=== PATIENT | male | born 1935 | race African-American/Black ===

== ENCOUNTER 2021-12-06 20:53 | Inpatient (IN) | payer OTHER, SELFPAY ==
[~2021-12-06] VITALS: Ht 180.3 cm; Wt 81.6 kg
[2021-12-06 21:23] VITALS: BP_SYST 149
--- NOTE | 2021-12-06 21:27 | NUR ---
Patient to ER bed TENT 3 to gown for evaluation. Side rails up.
--- NOTE | 2021-12-06 21:30 | NUR ---
Pt brought by self,A&Ox4, pt presents to ER with cough/congestion, states he is positive for covid, VSS, respirations even and unlabored, will cont to monitor.
--- NOTE | 2021-12-06 21:49 | NUR ---
patient moved from tent to room 6
--- NOTE | 2021-12-06 22:15 | NUR ---
VALORIE [phone] SON UPDATED ON PATIENT STATUS.
--- NOTE | 2021-12-06 22:27 | NUR ---
Dr Reese evaluating patient at bedside
[2021-12-06] MEDS ORDERED: NACL 0.9% 1,000 ML IV ONE (22:45)
--- NOTE | 2021-12-07 00:21 | NUR ---
nosal swab done for covid test and sent to lab.
[2021-12-07 00:26] LABS: BASOPHILS % (AUTO) 0.5 % (0.0-2.0); HEMATOCRIT 37.6 % (36-54); LYMPHOCYTES # (AUTO) 3.1 K/uL (1.0-5.5); LYMPHOCYTES % (AUTO) 61.1 % (20.5-51.5); MEAN CORPUSCULAR HEMOGLOBIN 29 pg (27-31); MEAN CORPUSCULAR HGB CONC 32 % (32-36); MEAN CORPUSCULAR VOLUME 89 fL (79.0-98.0); MONOCYTES # (AUTO) 0.5 K/uL (0.0-1.0); MONOCYTES % (AUTO) 10.8 % (1.7-9.3); NEUTROPHILS # (AUTO) 1.4 K/uL (1.8-7.7); NEUTROPHILS % (AUTO) 27.6 % (40.0-70.0); PLATELET COUNT (AUTO) 107 K/uL (130-430); RED BLOOD CELL COUNT(AUTO) 4.22 MIL/uL (4.2-6.2); RED CELL DISTRIBUTION WIDTH 14.1 % (9.0-15.0); WHITE BLOOD COUNT (AUTO) 5.1 K/uL (4.8-10.8)
[2021-12-07 00:39] LABS: ANION GAP 8 (5-15); CALCIUM 8.1 mg/dL (8.4-11.0); CHLORIDE 103 mmol/L (98-107); CREATININE 1.35 mg/dL (0.55-1.30); GLUCOSE 103 mg/dL (70-99); POTASSIUM 3.9 mmol/L (3.5-5.1); SODIUM SERUM 141 mmol/L (136-145); UREA NITROGEN, BLOOD 29 mg/dL (8-21)
[2021-12-07 00:41] LABS: INR 1.1 (0.80-1.20); PROTHROMBIN TIME 11.2 SECS (9.5-12.5)
[2021-12-07 00:58] LABS: ALANINE AMINOTRANSFERASE 41 U/L (12-78); ALBUMIN 3.3 g/dL (3.4-4.8); ASPARTATE AMINOTRANSFERASE 50 U/L (10-37); LIPASE 307 U/L (73-393); TOTAL BILIRUBIN 0.8 mg/dL (0.0-1.0)
--- NOTE | 2021-12-07 01:23 | NUR ---
troponin high sensitivity 103 as reported by md alisha informed.
[2021-12-07] MEDS ORDERED: ASPIRIN 81 MG TAB.CHEW PO ONE (01:30)
[2021-12-07 01:47] LABS: BILIRUBIN,URINE NEGATIVE (NEGATIVE); BLOOD, URINE TRACE (NEGATIVE); CLARITY/URINE CLEAR (CLEAR); COLOR,URINE YELLOW (YELLOW); GLUCOSE,URINE NEGATIVE (NEGATIVE); KETONES,URINE NEGATIVE (NEGATIVE); LEUKOCYTE ESTERASE ,URINE NEGATIVE (NEGATIVE); NITRITE, URINE NEGATIVE (NEGATIVE); PH,URINE 5.5 (5.0-8.0); PROTEIN URINE 2+ (NEGATIVE); UROBILINOGEN,URINE 0.2 (0.2-1.0)
--- NOTE | 2021-12-07 02:00 | NUR ---
rounding done, patient comfortable in bed, denies needs at this time.
--- NOTE | 2021-12-07 03:00 | NUR ---
rounding done, patient requested for warm blanket, provided. denies any other needs at this time.
[2021-12-07 03:30] LABS: BACTERIA,URINE RARE /HPF (None Seen); WBC,URINE 0-3 /HPF (0-3)
[2021-12-07 03:31] LABS: MUCUS,URINE None Seen /LPF (None Seen)
[2021-12-07] MEDS ORDERED: FINA5TAB3 PO (03:35)
[2021-12-07] MEDS ORDERED: ASPI-1155 PO (03:37)
[2021-12-07] MEDS ORDERED: LISI20TA30 PO (03:38)
[2021-12-07] MEDS ORDERED: GABA-529 PO (03:38)
[2021-12-07] MEDS ORDERED: PRO40 PO (03:39)
[2021-12-07] MEDS ORDERED: LIP40 PO (03:40)
[2021-12-07] MEDS ORDERED: SENN-295 PO (03:40)
[2021-12-07] MEDS ORDERED: INSU100V9 SQ (03:41)
[2021-12-07] MEDS ORDERED: DORZ10DR10 EACH EYE (03:42)
[2021-12-07] MEDS ORDERED: TIMO5DRO15 EACH EYE (03:43)
[2021-12-07] MEDS ORDERED: CLOP75TA32 PO (03:44)
[2021-12-07] MEDS ORDERED: VITD400 PO (03:45)
[2021-12-07] MEDS ORDERED: SILO8CAP2 PO (03:45)
[2021-12-07] MEDS ORDERED: FLO44 INH (03:46)
[2021-12-07] MEDS ORDERED: COR3.125 PO (03:46)
--- NOTE | 2021-12-07 04:00 | NUR ---
rounding done, denies need at this time. will continue to monitor, denies any discomfort.
--- NOTE | 2021-12-07 05:02 | NUR ---
rounding done, comfortable in bed, denies any needs at this time.
--- NOTE | 2021-12-07 06:08 | NUR ---
patient changed to hospital gown, urinated about 150 mls, to yellow clear output. all other needs attended.
[2021-12-07] MEDS ORDERED: LORazepam 2 MG/ML VIAL IVP PRN (06:15)
[2021-12-07] MEDS ORDERED: IPRATROPIUM BROM 0.5 MG/2.5 ML VIAL.NEB (ATROVENT) INH PRN (06:15)
[2021-12-07] MEDS ORDERED: ACETAMINOPHEN 325 MG TABLET PO PRN (06:15)
[2021-12-07] MEDS ORDERED: ONDANSETRON HCL 4 MG/2 ML VIAL IVP PRN (06:15)
[2021-12-07] MEDS ORDERED: ALBUTEROL SULFATE 0.083% 2.5 MG/3 ML VIAL.NEB INH PRN (06:15)
--- NOTE | 2021-12-07 06:31 | NUR ---
son of patient "Windy" called to check on his father, patient allowed rn to give update to caller, he then will call back in one hour time.
[2021-12-07] MEDS ORDERED: AZITHROMYCIN 500 MG/VIAL (ZITHROMAX) IV ONE (06:41)
[2021-12-07] MEDS: AZITHROMYCIN 500 MG in NS 250 ML IV SCH (06:52)
[2021-12-07] MEDS: cefTRIAXone 1 GM IVPB PREMIX 50 ML IV SCH (06:52)
--- NOTE | 2021-12-07 07:11 | NUR ---
report given to donna nolen.
--- NOTE | 2021-12-07 07:18 | NUR ---
Patient resting quietly. No acute distress noted. Vital signs within normal range. assumed patient care 86 years old male admitted with covid and elevated troponin, denies cp will continue to monitor awaiting for tele bed.
[2021-12-07] MEDS: INSULIN GLARGINE 100 UNITS/ML 10 ML VIAL SQ SCH (09:00)
[2021-12-07] MEDS ORDERED: FLUTICASONE 44 mcg/ACTUATION MDI AER.W.ADAP INH SCH (09:00)
[2021-12-07] MEDS ORDERED: TIMOLOL MALEATE 0.5% OPHTHALMIC DROPS 5 ML EACH EYE SCH (09:00)
[2021-12-07] MEDS ORDERED: CARVEDILOL 3.125 MG TABLET (COREG) PO SCH (09:00)
[2021-12-07] MEDS ORDERED: NON-FORMULARY MEDICATION (Silodosin (Rapaflo) 8 MG) PO SCH (09:00)
[2021-12-07] MEDS: CHOLECALCIFEROL (VITAMIN D-3) 400 UNIT TABLET PO SCH (10:05)
[2021-12-07] MEDS: ASPIRIN 81 MG TAB.CHEW PO SCH (10:05)
[2021-12-07] MEDS: PANTOPRAZOLE SODIUM 40 MG TAB PO SCH (10:05)
[2021-12-07] MEDS: SENNOSIDES/DOCUSATE SODIUM 1 TAB TABLET(SENOKOT-S) PO SCH (10:05)
[2021-12-07] MEDS: CLOPIDOGREL BISULFATE 75 MG TABLET PO SCH (10:05)
[2021-12-07] MEDS: GABAPENTIN 100 MG CAPSULE PO SCH (10:06)
[2021-12-07] MEDS: FINASTERIDE 5 MG TABLET (PROSCAR) PO SCH (10:07)
[2021-12-07] MEDS: lisinopriL 20 MG TABLET PO SCH ×2 (10:07→23:15)
--- NOTE | 2021-12-07 11:00 | NUR ---
covid swab for roberto collected/sent to lab.
[2021-12-07] MEDS: DORZOLAMIDE HCL/TIMOLOL MAL. 10 ML EYE DROPS (COSOPT) EACH EYE SCH ×2 (11:57→21:00)
--- NOTE | 2021-12-07 12:22 | NUR ---
Patient resting quietly. No acute distress noted. Vital signs within normal range. bs 132 no coverage, no pain.
--- NOTE | 2021-12-07 15:25 | NUR ---
Admission Note Received patient from ER with diagnosis of Covid PNA, Elevated Troponin. Initial Plan of Care discussed-patient verbalized his understanding. Admission interview done. Attempted to call pt's family x3, no answer, left message with pt's son Caitie to call back. Oriented to room, call light, pain management and safety. Call light within reach.
[2021-12-07] MEDS: NORMAL SALINE 5 ML DISP.SYRIN IVF SCH ×2 (15:30→22:00)
--- NOTE | 2021-12-07 15:33 | NUR ---
Patient will be admitted to care of nurse Almanza. Admitted to tele unit. Will go to room 115. Belongings list completed. Complete and up to date summary report printed. SBAR report to be given at bedside with opportunity for questions.
--- NOTE | 2021-12-07 15:44 | NUR ---
CONSULTATION PAGED REASON FOR CONSULTATION;COVID WAS CONSULT CALED?Y PERSON WHO WAS NOTIFIED:SHANTEL CONSULTING PHYSICIAN:RAFAELA HUGHES JANITOR HEAD SPECIALTY:INFECTIOUS DISEASE JANITOR HEAD PHONE NUMBER:[phone] REQUESTING PHYSICIAN:VERNON VELASQUEZ
[2021-12-07 16:15] VITALS: BP_SYST 148
--- NOTE | 2021-12-07 18:15 | NUR ---
WOUND CARE Right Anterior Middle Toe cleansed with normal saline, Hydrogel placed onto wound bed, covered with a foam dressing and secured in place with June wrap. Wound bed measures 0.3 cm x 0.6 cm, wound bed is 95% yellow tissue, 5% dark pink tissue, no odor, no drainage. Right foot elevated on pillow. Pt tolerated well.
--- NOTE | 2021-12-07 19:25 | NUR ---
CLOSING NOTE Pt sitting up in bed talking to his son on the phone. No s/s resp distress, no c/o pain or discomfort. Airborne and droplet isolation precautions maintained throughout shift. Skin and safety precautions remain in place, call light within reach.
[2021-12-07 20:00] VITALS: BP_SYST 184
[2021-12-07] MEDS: ATORVASTATIN 20 MG TABLET PO SCH (23:14)
[2021-12-08] VITALS (16 sets, daily range): BP systolic 56–232
--- NOTE | 2021-12-08 01:24 | NUR ---
PAGED: DR JONES PAGED PER PRIMARY RNS REQUEST
[2021-12-08] MEDS ORDERED: hydrALAZINE HCL 20 MG/ML VIAL IVP PRN (01:45)
--- NOTE | 2021-12-08 02:59 | NUR ---
PATIENT VITAL SIGNS ASSESSED, PATIENTS BLOOD PRESSURE WAS 184/89, PATIENT GIVEN PRESCRIBED HTN MEDICATION LISINOPRIL 12.5 MG, RE ASSESSED PATIENT AND BLOOD PRESSURE WAS 202/92. CONTACTED DR JONES FOR BLOOD PRESSURE AND HE PLACED A TELEPHONE ORDER FOR HYDRALAZINE 10MG IV Q6HRS PRN HTN.
--- NOTE | 2021-12-08 05:25 | NUR ---
DR KAREN DUTTON
[2021-12-08] MEDS ORDERED: hydrALAZINE HCL 20 MG/ML VIAL ONE (05:37)
[2021-12-08] MEDS ORDERED: hydrALAZINE HCL 20 MG/ML VIAL IVP ONE (05:45)
[2021-12-08] MEDS ORDERED: NITROGLYCERIN 0.4 MG TAB.SUBL SL PRN (05:45)
[2021-12-08] MEDS: NORMAL SALINE 5 ML DISP.SYRIN IVF SCH ×3 (06:00→22:00)
--- NOTE | 2021-12-08 06:15 | NUR ---
530 AM PT STARTED HAVING WORSENING SYMPTOMS. ASSESSED PATIENT AND NOTICED MAJOR FLUCTUATIONS IN BLOOD PRESSURE ALONG WITH DIAPHORESIS AND TACHYPNEA. THE PATIENT WAS GIVEN HYDRALAZINE 10 AT 0555 AND A SECOND IV LINE WAS STARTED. LAB CAME AND TOOK BLOOD FOR BLOOD WORK. RESULTS PENDING
--- NOTE | 2021-12-08 06:39 | NUR ---
CONSULTATION PAGED REASON FOR CONSULTATION:DESATING WAS CONSULT CALLED?Y PERSON WHO WAS NOTIFIED:OMERO CONSULTING PHYSICIAN:PAULA SHOOK SHOE TURNER SPECIALTY:PULMONARY SHOE TURNER PHONE NUMBER<[phone] REQUESTING PHYSICIAN:ANA MARIA CHAND RAJNISH
[2021-12-08] MEDS ORDERED: FUROSEMIDE 40 MG/4 ML VIAL IVP ONE (07:15)
[2021-12-08 07:43] LABS: BASOPHILS # (AUTO) 0.1 K/uL (0.0-0.2); BASOPHILS % (AUTO) 0.6 % (0.0-2.0); EOSINOPHILS % (AUTO) 0.1 % (0.0-4.0); HEMOGLOBIN 15.4 g/dL (14.0-18.0); LYMPHOCYTES % (AUTO) 27.8 % (20.5-51.5); MEAN CORPUSCULAR HEMOGLOBIN 29 pg (27-31); MEAN CORPUSCULAR HGB CONC 33 % (32-36); MEAN CORPUSCULAR VOLUME 89 fL (79.0-98.0); MONOCYTES # (AUTO) 0.6 K/uL (0.0-1.0); MONOCYTES % (AUTO) 5.4 % (1.7-9.3); NEUTROPHILS # (AUTO) 7.1 K/uL (1.8-7.7); NEUTROPHILS % (AUTO) 66.1 % (40.0-70.0); PLATELET COUNT (AUTO) 116 K/uL (130-430); RED BLOOD CELL COUNT(AUTO) 5.27 MIL/uL (4.2-6.2); RED CELL DISTRIBUTION WIDTH 14.3 % (9.0-15.0); WHITE BLOOD COUNT (AUTO) 10.8 K/uL (4.8-10.8)
[2021-12-08 08:08] LABS: ANION GAP 12 (5-15); CALCIUM 8.4 mg/dL (8.4-11.0); CHLORIDE 103 mmol/L (98-107); CREATININE 0.93 mg/dL (0.55-1.30); GLUCOSE 135 mg/dL (70-99); POTASSIUM 3.8 mmol/L (3.5-5.1); SODIUM SERUM 141 mmol/L (136-145); UREA NITROGEN, BLOOD 21 mg/dL (8-21)
--- NOTE | 2021-12-08 08:30 | NUR ---
late entry dr alvarez here . seen pt. cancelled order for icu transfer.
[2021-12-08] MEDS: DORZOLAMIDE HCL/TIMOLOL MAL. 10 ML EYE DROPS (COSOPT) EACH EYE SCH ×2 (09:00→20:54)
[2021-12-08] MEDS: INSULIN GLARGINE 100 UNITS/ML 10 ML VIAL SQ SCH (09:00)
[2021-12-08] MEDS: FUROSEMIDE 40 MG/4 ML VIAL IVP SCH ×2 (09:00→20:50)
[2021-12-08] MEDS: CHOLECALCIFEROL (VITAMIN D-3) 400 UNIT TABLET PO SCH (09:01)
[2021-12-08] MEDS: PANTOPRAZOLE SODIUM 40 MG TAB PO SCH (09:01)
[2021-12-08] MEDS: GABAPENTIN 100 MG CAPSULE PO SCH (09:01)
[2021-12-08] MEDS: SENNOSIDES/DOCUSATE SODIUM 1 TAB TABLET(SENOKOT-S) PO SCH (09:01)
[2021-12-08] MEDS: CLOPIDOGREL BISULFATE 75 MG TABLET PO SCH (09:01)
[2021-12-08] MEDS: CARVEDILOL 6.25 MG TABLET (COREG) PO SCH (09:04)
[2021-12-08] MEDS: FINASTERIDE 5 MG TABLET (PROSCAR) PO SCH (09:04)
[2021-12-08] MEDS: ASPIRIN 81 MG TAB.CHEW PO SCH (09:04)
[2021-12-08] MEDS: lisinopriL 20 MG TABLET PO SCH ×2 (09:05→20:49)
[2021-12-08] MEDS: cefTRIAXone 1 GM IVPB PREMIX 50 ML IV SCH (09:16)
[2021-12-08] MEDS: AZITHROMYCIN 500 MG in NS 250 ML IV SCH (09:55)
[2021-12-08] MEDS: DEXAMETHASONE SOD PHOSPHATE 4 MG/ML VIAL IVP SCH (09:55)
[2021-12-08] MEDS: NITROGLYCERIN 0.4 MG/HR PATCH.TD24 TD SCH (10:02)
--- NOTE | 2021-12-08 13:48 | NUR ---
ROUNDS PT resting in bed comfortably eating lunch. Was able to have his first BM since 12/04, occult blood specimen collected and sent to lab. PT denies pain and shows no signs of respiratory distress on room air. IV site is clean, dry, intact, and patent. Safety checks were made and call light left within reach. Addendum: 12/08/21 at 1351 by Alyssa Jimenez LVN CHARTED ON WRONG PATIENT DISREGARD
--- NOTE | 2021-12-08 14:20 | NUR ---
note Pt having Venous Doppler study at bedside at this time.
--- NOTE | 2021-12-08 14:30 | NUR ---
Note Spoke to pt's son Gurwinder Guerra and update on pt's status given at this time. Call had already been made to pt's son at 1208, no answer, message left on answering machine.
[2021-12-08 16:38] LABS: ALBUMIN 2.9 g/dL (3.4-4.8); BILIRUBIN,DIRECT 0.2 mg/dL (0.0-0.3); TOTAL BILIRUBIN 0.9 mg/dL (0.0-1.0)
[2021-12-08] MEDS: INSULIN REGULAR, HUMAN 100 UNITS/ML, 10 ML VIAL (humuLIN R) SUBCUT PRN ×2 (16:43→20:52)
--- NOTE | 2021-12-08 17:00 | NUR ---
Note Called Dr Tang about Tropnin level drawn at 0610am and 1550 (Troponin 240 - 388). Dr Tang requested Troponin draw at 2300 be cancelled at this time.
--- NOTE | 2021-12-08 18:35 | NUR ---
Note Pt sitting up in bed and eating his dinner independently. Pt was checked on q1' and PRN all shift for needs and case. Pt's bed in low position and bed alarm on all shift. Pt on O2 at 4L/nc all shift. Tele unit attached and intact all shift. Pt's IV in left hand intact and patent infusing IVF's well. Pt has been using urinal to void, also has episodes of incontinence. Pt was given hygiene care and chux under pt changed frequently. Pt maintained with safety precautions all shift. Call light within reach. Pt stable at this time.
[2021-12-08] MEDS: ATORVASTATIN 20 MG TABLET PO SCH (20:49)
[2021-12-09] MEDS: cefTRIAXone 1 GM IVPB PREMIX 50 ML IV SCH (05:20)
[2021-12-09] MEDS: NORMAL SALINE 5 ML DISP.SYRIN IVF SCH ×3 (06:04→22:06)
[2021-12-09] MEDS: AZITHROMYCIN 500 MG in NS 250 ML IV SCH (06:04)
[2021-12-09 08:00] VITALS: BP_SYST 180
[2021-12-09] MEDS: NITROGLYCERIN 0.4 MG/HR PATCH.TD24 TD SCH (08:32)
[2021-12-09] MEDS: SENNOSIDES/DOCUSATE SODIUM 1 TAB TABLET(SENOKOT-S) PO SCH (08:33)
[2021-12-09] MEDS: GABAPENTIN 100 MG CAPSULE PO SCH (08:33)
[2021-12-09] MEDS: ASPIRIN 81 MG TAB.CHEW PO SCH (08:33)
[2021-12-09] MEDS: CLOPIDOGREL BISULFATE 75 MG TABLET PO SCH (08:33)
[2021-12-09] MEDS: PANTOPRAZOLE SODIUM 40 MG TAB PO SCH (08:33)
[2021-12-09] MEDS: lisinopriL 20 MG TABLET PO SCH ×2 (08:33→22:01)
[2021-12-09] MEDS: CHOLECALCIFEROL (VITAMIN D-3) 400 UNIT TABLET PO SCH (08:33)
[2021-12-09] MEDS: FINASTERIDE 5 MG TABLET (PROSCAR) PO SCH (08:34)
[2021-12-09] MEDS: CARVEDILOL 6.25 MG TABLET (COREG) PO SCH (08:34)
[2021-12-09] MEDS: FUROSEMIDE 40 MG/4 ML VIAL IVP SCH (08:34)
[2021-12-09] MEDS: DEXAMETHASONE SOD PHOSPHATE 4 MG/ML VIAL IVP SCH (08:35)
[2021-12-09 08:37] LABS: ALANINE AMINOTRANSFERASE 30 U/L (12-78); ALBUMIN 2.8 g/dL (3.4-4.8); ANION GAP 9 (5-15); ASPARTATE AMINOTRANSFERASE 42 U/L (10-37); CALCIUM 8.5 mg/dL (8.4-11.0); CHLORIDE 104 mmol/L (98-107); CREATININE 0.95 mg/dL (0.55-1.30); GLUCOSE 107 mg/dL (70-99); POTASSIUM 4.2 mmol/L (3.5-5.1); SODIUM SERUM 141 mmol/L (136-145); TOTAL BILIRUBIN 0.9 mg/dL (0.0-1.0); UREA NITROGEN, BLOOD 25 mg/dL (8-21)
[2021-12-09] MEDS: INSULIN GLARGINE 100 UNITS/ML 10 ML VIAL SQ SCH (08:49)
[2021-12-09] MEDS: DORZOLAMIDE HCL/TIMOLOL MAL. 10 ML EYE DROPS (COSOPT) EACH EYE SCH ×2 (08:55→22:03)
[2021-12-09] MEDS ORDERED: hydrALAZINE HCL 25 MG TABLET PO ONE (10:00)
--- NOTE | 2021-12-09 10:25 | NUR ---
Nutrition Update Kei Scale 17 noted. Pt admitted for N/A. Diet: [facility] BMI: 25.2 kg/m2 RD to follow per nutrition care standards. Addendum: 12/09/21 at [address] CORRECTION: Diet: [facility], cardiac
[2021-12-09 11:35] VITALS: BP_SYST 141
[2021-12-09] MEDS: hydrALAZINE HCL 25 MG TABLET PO SCH ×2 (14:00→22:00)
--- NOTE | 2021-12-09 14:00 | NUR ---
Dietitian Recommendations * CCHO, cardiac, chopped diet, Glucerna BID (ONS yields 440 kcal/day, 20 gm protein/day) * Encourage increase PO intakes LP, RD Please refer to Nutrition Assessment for details. Addendum: 12/09/21 at [address] Amended: Links added.
[2021-12-09] MEDS: ISOSORBIDE DINITRATE 20 MG TABLET (ISORDIL) PO SCH ×2 (15:00→22:01)
[2021-12-09 16:00] VITALS: BP_SYST 113
[2021-12-09] MEDS: INSULIN REGULAR, HUMAN 100 UNITS/ML, 10 ML VIAL (humuLIN R) SUBCUT PRN ×2 (16:46→22:05)
--- NOTE | 2021-12-09 18:55 | NUR ---
NOTE Pt checked on q1' and PRN all shift for needs and care. Pt's bed in low position and bed alarm on all shift. Pt was maintained with safety and isolation precautions all shift. IV in Left hand intact and patent. Pt on O2 at 4L/nc. Pt uses urinal all shift ot void. VSS all shift. Tele unit attached and intact all shift. Call light within reach. No needs noted.
[2021-12-09 20:00] VITALS: BP_SYST 153
--- NOTE | 2021-12-09 20:10 | NUR ---
Patient lying in bed with eyes open, resting comfortably. Patient VSS, chest rise and fall symetrical. IV line patent and intact. Patient does not c/o pain or display s/s of discomfort. G-tube placement good and checked via auscultation. Patient's bed in low and locked position, three bed rails up, seizure pads in place, call light in place. Addendum: 12/10/21 at 0559 by [facility] brothel keeper Patient lying in bed with eyes open, resting comfortably. Patient VSS, chest rise and fall symetrical. IV line patent and intact. Patient does not c/o pain or display s/s of discomfort. Patient's bed in low and locked position, three bed rails up, call light in place. Addendum: 12/10/21 at 0750 by [facility] brothel keeper Patient lying in bed with eyes open, resting comfortably. Patient VSS, chest rise and fall symetrical. IV line patent and intact. Patient does not c/o pain or display s/s of discomfort. Safety and isolation (PUI COVID precautions) in place. Patient's bed in low and locked position, three bed rails up, call light in place.
[2021-12-09] MEDS: CARVEDILOL 12.5 MG TABLET (COREG) PO SCH (22:02)
[2021-12-09] MEDS: ATORVASTATIN 20 MG TABLET PO SCH (22:02)
--- NOTE | 2021-12-10 | NUR ---
Patient lying in bed with eyes open, resting comfortably. Patient VSS, chest rise and fall symetrical. IV line patent and intact. Patient does not c/o pain or display s/s of discomfort. G-tube placement good and checked via auscultation. Patient's bed in low and locked position, three bed rails up, seizure pads in place, call light in place. Addendum: 12/10/21 at 0559 by [facility] trimming cutter Patient lying in bed with eyes open, resting comfortably. Patient VSS, chest rise and fall symetrical. IV line patent and intact. Patient does not c/o pain or display s/s of discomfort. Patient's bed in low and locked position, three bed rails up, call light in place. Addendum: 12/10/21 at 0750 by [facility] trimming cutter Patient lying in bed with eyes open, resting comfortably. Patient VSS, chest rise and fall symetrical. IV line patent and intact. Patient does not c/o pain or display s/s of discomfort. Safety and isolation (PUI COVID precautions) in place. Patient's bed in low and locked position, three bed rails up, call light in place.
[2021-12-10 00:03] VITALS: BP_SYST 105
[2021-12-10] MEDS: NORMAL SALINE 5 ML DISP.SYRIN IVF SCH ×3 (05:45→21:19)
[2021-12-10] MEDS: hydrALAZINE HCL 25 MG TABLET PO SCH ×3 (06:37→22:00)
[2021-12-10] MEDS: cefTRIAXone 1 GM IVPB PREMIX 50 ML IV SCH (06:43)
[2021-12-10] MEDS: AZITHROMYCIN 500 MG in NS 250 ML IV SCH (07:14)
--- NOTE | 2021-12-10 07:51 | NUR ---
Patient lying in bed with eyes open, resting comfortably. Patient VSS, chest rise and fall symetrical. IV line patent and intact. Patient does not c/o pain or display s/s of discomfort. Safety and isolation (PUI COVID precautions) in place. Patient's bed in low and locked position, three bed rails up, call light in place. Report given to AM shift nurse, no further questions from AM shift nurse.
[2021-12-10 08:00] VITALS: BP_SYST 147
[2021-12-10] MEDS: DEXAMETHASONE SOD PHOSPHATE 4 MG/ML VIAL IVP SCH (08:28)
[2021-12-10] MEDS: CARVEDILOL 12.5 MG TABLET (COREG) PO SCH ×2 (08:29→21:24)
[2021-12-10] MEDS: ASPIRIN 81 MG TAB.CHEW PO SCH (08:29)
[2021-12-10] MEDS: GABAPENTIN 100 MG CAPSULE PO SCH (08:30)
[2021-12-10] MEDS: CLOPIDOGREL BISULFATE 75 MG TABLET PO SCH (08:30)
[2021-12-10] MEDS: ISOSORBIDE DINITRATE 20 MG TABLET (ISORDIL) PO SCH ×3 (08:30→21:23)
[2021-12-10] MEDS: lisinopriL 20 MG TABLET PO SCH ×2 (08:30→21:24)
[2021-12-10] MEDS: SENNOSIDES/DOCUSATE SODIUM 1 TAB TABLET(SENOKOT-S) PO SCH (08:31)
[2021-12-10] MEDS: CHOLECALCIFEROL (VITAMIN D-3) 400 UNIT TABLET PO SCH (08:31)
[2021-12-10] MEDS: PANTOPRAZOLE SODIUM 40 MG TAB PO SCH (08:31)
[2021-12-10] MEDS: INSULIN GLARGINE 100 UNITS/ML 10 ML VIAL SQ SCH (08:32)
[2021-12-10] MEDS: DORZOLAMIDE HCL/TIMOLOL MAL. 10 ML EYE DROPS (COSOPT) EACH EYE SCH ×2 (09:00→21:15)
[2021-12-10] MEDS: FINASTERIDE 5 MG TABLET (PROSCAR) PO SCH (09:00)
[2021-12-10 09:24] LABS: ALANINE AMINOTRANSFERASE 28 U/L (12-78); ALBUMIN 2.6 g/dL (3.4-4.8); ANION GAP 4 (5-15); ASPARTATE AMINOTRANSFERASE 35 U/L (10-37); CALCIUM 8.1 mg/dL (8.4-11.0); CHLORIDE 102 mmol/L (98-107); CREATININE 1.09 mg/dL (0.55-1.30); GLUCOSE 115 mg/dL (70-99); POTASSIUM 4.7 mmol/L (3.5-5.1); SODIUM SERUM 140 mmol/L (136-145); TOTAL BILIRUBIN 1.2 mg/dL (0.0-1.0); UREA NITROGEN, BLOOD 32 mg/dL (8-21)
[2021-12-10 12:00] VITALS: BP_SYST 110
[2021-12-10] MEDS: INSULIN REGULAR, HUMAN 100 UNITS/ML, 10 ML VIAL (humuLIN R) SUBCUT PRN ×2 (12:36→17:47)
[2021-12-10 16:00] VITALS: BP_SYST 123
[2021-12-10 20:40] VITALS: BP_SYST 134
[2021-12-10] MEDS: ATORVASTATIN 20 MG TABLET PO SCH (21:16)
--- NOTE | 2021-12-10 21:19 | NUR ---
Opening notes Late entry: Pt AAOx4, VSS, afebrile. No c/o chest pain. Meds passed, pt able to swallow one pill at a time when dentures removed. BS checked 145. IV TKO L. wrist 22G no s/s infiltration. Call light within reach. Bed low, locked, siderails up x3. Covid isolation maintained. To monitor.
--- NOTE | 2021-12-11 00:50 | NUR ---
Rounds Pt asleep, easily awakens. VSS, no s/s distress. Call light within reach. Safety/Covid isolation maintained. To monitor.
[2021-12-11] MEDS: cefTRIAXone 1 GM IVPB PREMIX 50 ML IV SCH (06:16)
[2021-12-11] MEDS: NORMAL SALINE 5 ML DISP.SYRIN IVF SCH ×3 (06:16→21:53)
[2021-12-11] MEDS: hydrALAZINE HCL 25 MG TABLET PO SCH ×3 (06:22→21:59)
[2021-12-11] MEDS: AZITHROMYCIN 500 MG in NS 250 ML IV SCH (07:18)
[2021-12-11 07:49] LABS: ALANINE AMINOTRANSFERASE 28 U/L (12-78); ALBUMIN 2.5 g/dL (3.4-4.8); ANION GAP 5 (5-15); ASPARTATE AMINOTRANSFERASE 32 U/L (10-37); CALCIUM 8.1 mg/dL (8.4-11.0); CHLORIDE 104 mmol/L (98-107); GLUCOSE 111 mg/dL (70-99); POTASSIUM 4.8 mmol/L (3.5-5.1); SODIUM SERUM 140 mmol/L (136-145); UREA NITROGEN, BLOOD 38 mg/dL (8-21)
[2021-12-11 07:57] VITALS: BP_SYST 135
[2021-12-11] MEDS: ASPIRIN 81 MG TAB.CHEW PO SCH (08:34)
[2021-12-11] MEDS: DORZOLAMIDE HCL/TIMOLOL MAL. 10 ML EYE DROPS (COSOPT) EACH EYE SCH ×2 (08:34→21:50)
[2021-12-11] MEDS: DEXAMETHASONE SOD PHOSPHATE 4 MG/ML VIAL IVP SCH (08:34)
[2021-12-11] MEDS: lisinopriL 20 MG TABLET PO SCH ×2 (08:35→21:57)
[2021-12-11] MEDS: ISOSORBIDE DINITRATE 20 MG TABLET (ISORDIL) PO SCH ×3 (08:35→21:49)
[2021-12-11] MEDS: CARVEDILOL 12.5 MG TABLET (COREG) PO SCH ×2 (08:35→21:58)
[2021-12-11] MEDS: GABAPENTIN 100 MG CAPSULE PO SCH (08:35)
[2021-12-11] MEDS: CLOPIDOGREL BISULFATE 75 MG TABLET PO SCH (08:35)
[2021-12-11] MEDS: PANTOPRAZOLE SODIUM 40 MG TAB PO SCH (08:38)
[2021-12-11] MEDS: SENNOSIDES/DOCUSATE SODIUM 1 TAB TABLET(SENOKOT-S) PO SCH (08:38)
[2021-12-11] MEDS: FINASTERIDE 5 MG TABLET (PROSCAR) PO SCH (08:38)
[2021-12-11] MEDS: CHOLECALCIFEROL (VITAMIN D-3) 400 UNIT TABLET PO SCH (08:38)
[2021-12-11] MEDS: INSULIN GLARGINE 100 UNITS/ML 10 ML VIAL SQ SCH (08:39)
[2021-12-11 09:51] VITALS: BP_SYST 135
[2021-12-11 12:00] VITALS: BP_SYST 128
[2021-12-11] MEDS: INSULIN REGULAR, HUMAN 100 UNITS/ML, 10 ML VIAL (humuLIN R) SUBCUT PRN ×3 (12:29→21:54)
[2021-12-11] MEDS ORDERED: ALBUTEROL MDI INHALATION 8 GM INH INH PRN (13:45)
[2021-12-11 16:00] VITALS: BP_SYST 130
[2021-12-11 20:40] VITALS: BP_SYST 156
[2021-12-11] MEDS: ATORVASTATIN 20 MG TABLET PO SCH (21:49)
[2021-12-12 00:50] VITALS: BP_SYST 133
[2021-12-12] MEDS: NORMAL SALINE 5 ML DISP.SYRIN IVF SCH ×3 (06:10→22:19)
[2021-12-12] MEDS: cefTRIAXone 1 GM IVPB PREMIX 50 ML IV SCH (06:10)
[2021-12-12] MEDS: hydrALAZINE HCL 25 MG TABLET PO SCH ×3 (06:20→22:19)
--- NOTE | 2021-12-12 06:40 | NUR ---
Closing notes/Low blood sugar 61 Pt asleep, easily awakens, no s/s distress noted. @0619 BS checked 61, no change in pt's mental status, no c/o sweating. 1 cup applejuice given, rechecked BS at 0640--85. IV abx administered L. wrist 22G clear and patent. Call light within reach. Bed low, locked, siderails up x3. Covid isolation maintained. To endorse to AM nurse.
[2021-12-12] MEDS ORDERED: DEXTROSE 50% JECT 50 ML DISP.SYRIN IVP PRN (07:00)
[2021-12-12] MEDS ORDERED: D5W 1,000 ML IV PRN (07:00)
[2021-12-12] MEDS ORDERED: GLUCOSE (DEXTROSE) ORAL GEL -Adults PO PRN (07:00)
[2021-12-12 08:44] LABS: ALANINE AMINOTRANSFERASE 27 U/L (12-78); ALBUMIN 2.4 g/dL (3.4-4.8); ANION GAP 6 (5-15); ASPARTATE AMINOTRANSFERASE 32 U/L (10-37); CALCIUM 7.9 mg/dL (8.4-11.0); CHLORIDE 106 mmol/L (98-107); CREATININE 0.88 mg/dL (0.55-1.30); GLUCOSE 95 mg/dL (70-99); POTASSIUM 4.2 mmol/L (3.5-5.1); SODIUM SERUM 142 mmol/L (136-145); UREA NITROGEN, BLOOD 31 mg/dL (8-21)
[2021-12-12 11:21] VITALS: BP_SYST 139
[2021-12-12] MEDS: ASPIRIN 81 MG TAB.CHEW PO SCH (11:29)
[2021-12-12] MEDS: CHOLECALCIFEROL (VITAMIN D-3) 400 UNIT TABLET PO SCH (11:29)
[2021-12-12] MEDS: GABAPENTIN 100 MG CAPSULE PO SCH (11:29)
[2021-12-12] MEDS: SENNOSIDES/DOCUSATE SODIUM 1 TAB TABLET(SENOKOT-S) PO SCH (11:29)
[2021-12-12] MEDS: CLOPIDOGREL BISULFATE 75 MG TABLET PO SCH (11:30)
[2021-12-12] MEDS: CARVEDILOL 12.5 MG TABLET (COREG) PO SCH ×2 (11:30→22:19)
[2021-12-12] MEDS: lisinopriL 20 MG TABLET PO SCH ×2 (11:30→22:19)
[2021-12-12] MEDS: FINASTERIDE 5 MG TABLET (PROSCAR) PO SCH (11:31)
[2021-12-12] MEDS: PANTOPRAZOLE SODIUM 40 MG TAB PO SCH (11:31)
[2021-12-12] MEDS: ISOSORBIDE DINITRATE 20 MG TABLET (ISORDIL) PO SCH ×3 (11:31→22:19)
[2021-12-12] MEDS: DEXAMETHASONE SOD PHOSPHATE 4 MG/ML VIAL IVP SCH (11:31)
[2021-12-12] MEDS: INSULIN GLARGINE 100 UNITS/ML 10 ML VIAL SQ SCH (11:43)
[2021-12-12] MEDS: DORZOLAMIDE HCL/TIMOLOL MAL. 10 ML EYE DROPS (COSOPT) EACH EYE SCH ×2 (11:44→22:19)
[2021-12-12 16:00] VITALS: BP_SYST 129
[2021-12-12] MEDS: INSULIN REGULAR, HUMAN 100 UNITS/ML, 10 ML VIAL (humuLIN R) SUBCUT PRN (17:00)
[2021-12-12 20:00] VITALS: BP_SYST 127
[2021-12-12] MEDS: ATORVASTATIN 20 MG TABLET PO SCH (22:19)
[2021-12-13] VITALS: BP_SYST 121
[2021-12-13 04:00] VITALS: BP_SYST 115
[2021-12-13] MEDS: NORMAL SALINE 5 ML DISP.SYRIN IVF SCH (05:33)
[2021-12-13] MEDS: cefTRIAXone 1 GM IVPB PREMIX 50 ML IV SCH (06:38)
[2021-12-13] MEDS: hydrALAZINE HCL 25 MG TABLET PO SCH (06:38)
[2021-12-13 08:00] VITALS: BP_SYST 155
[2021-12-13] MEDS ORDERED: SPIRONOLACTONE 25 MG TABLET (ALDACTONE) PO ONE (09:45)
[2021-12-13] MEDS: INSULIN GLARGINE 100 UNITS/ML 10 ML VIAL SQ SCH (10:38)
[2021-12-13] MEDS: DEXAMETHASONE SOD PHOSPHATE 4 MG/ML VIAL IVP SCH (10:59)
[2021-12-13] MEDS: CLOPIDOGREL BISULFATE 75 MG TABLET PO SCH (11:00)
[2021-12-13] MEDS: ASPIRIN 81 MG TAB.CHEW PO SCH (11:00)
[2021-12-13] MEDS: FINASTERIDE 5 MG TABLET (PROSCAR) PO SCH (11:00)
[2021-12-13] MEDS: SENNOSIDES/DOCUSATE SODIUM 1 TAB TABLET(SENOKOT-S) PO SCH (11:00)
[2021-12-13] MEDS: CARVEDILOL 12.5 MG TABLET (COREG) PO SCH (11:01)
[2021-12-13] MEDS: CHOLECALCIFEROL (VITAMIN D-3) 400 UNIT TABLET PO SCH (11:01)
[2021-12-13] MEDS: GABAPENTIN 100 MG CAPSULE PO SCH (11:01)
[2021-12-13] MEDS: PANTOPRAZOLE SODIUM 40 MG TAB PO SCH (11:01)
[2021-12-13] MEDS: lisinopriL 20 MG TABLET PO SCH (11:01)
[2021-12-13] MEDS: DORZOLAMIDE HCL/TIMOLOL MAL. 10 ML EYE DROPS (COSOPT) EACH EYE SCH (11:03)
[2021-12-13 11:44] VITALS: BP_SYST 146
[2021-12-13] MEDS ORDERED: ALBMDI INH (12:23)
[2021-12-13] MEDS ORDERED: SPIR25TA PO (12:23)
[2021-12-13] MEDS ORDERED: CARV12.548 PO (12:23)
[2021-12-13] MEDS ORDERED: LISI20TA30 PO (12:23)
[2021-12-13] MEDS ORDERED: DEC1 PO (12:23)
[2021-12-13 14:17] VITALS: BP_SYST 146
--- NOTE | 2021-12-13 15:00 | NUR ---
Discharge Summary VSS, afebrile, denies pain or discomfort. Discharge instructions explained to pt and son, both verbalized understanding. IV removed, belongings returned, picked up by son via private auto. CHRYSTAL RN.
[2021-12-14] MEDS ORDERED: SPIRONOLACTONE 25 MG TABLET (ALDACTONE) PO SCH (09:00)
--- NOTE | 2021-12-15 08:27 | NUR ---
PHYSICAL THERAPY CO-SIGN The Physical Therapy Progress Notes documented by [employer] have been reviewed. Reviewed/Co-Signed by: Van Han Documentation Done by: STAR GARCIA PTA Addendum: 12/15/21 at 0828 by Van Han PT Amended: Links added.
== END 2021-12-13 15:00 | disposition home or self-care (01) | DRG 871 ==
LOC: SED 20:53 → STU 12-07 04:12 → SMU 12-11 22:27
PROVIDERS: ADMIT Internal Medicine Hospice and Palliative Medicine; ATTEND Internal Medicine Hospice and Palliative Medicine
PROC: XW033E5 Introduction of Remdesivir Anti-infective into Peripheral Vein, Percutaneous Approach, New Technology Group 5 (ICD-10-PCS; principal; 2021-12-08)
DX: A41.89 Other specified sepsis (principal); J12.82 Pneumonia due to coronavirus disease 2019; U07.1 COVID-19; J96.01 Acute respiratory failure with hypoxia; I50.43 Acute on chronic combined systolic (congestive) and diastolic (congestive) heart failure; I21.A1 Myocardial infarction type 2; I16.1 Hypertensive emergency; E11.52 Type 2 diabetes mellitus with diabetic peripheral angiopathy with gangrene; N17.9 Acute kidney failure, unspecified; N40.0 Benign prostatic hyperplasia without lower urinary tract symptoms; E78.5 Hyperlipidemia, unspecified; I25.10 Atherosclerotic heart disease of native coronary artery without angina pectoris; E55.9 Vitamin D deficiency, unspecified; I11.0 Hypertensive heart disease with heart failure; Z79.4 Long term (current) use of insulin; Z88.8 Allergy status to other drugs, medicaments and biological substances; Z91.041 Radiographic dye allergy status; Z79.899 Other long term (current) drug therapy; Z87.891 Personal history of nicotine dependence; Z90.5 Acquired absence of kidney; Z95.1 Presence of aortocoronary bypass graft; Z79.82 Long term (current) use of aspirin
CPT/HCPCS: 36415; 36600; 71045; 80048; 80053; 80076; 81000; 82803-TC; 82962; 83605; 83690; 83735; 84100; 84484; 85025; 85610-TC; 87040; 93005; 93306; 93971; 94760; 97163-GP; 99285; J0360; J0456; J0696; J1100; J1815; J1940; J7050; U0003